=== PATIENT | female | born 1980 | race Caucasian/White ===

== ENCOUNTER → 2019-09-11 | Day surgery (SDC) | payer OTHER ==
[~2019-09-11] MED LIST: ACETAMINOPHEN/CODEINE 300MG - 30MG TAB ONE; ADVAIR 250-501 EACH INH; CRYSELLE1 EACH PO; DEXAMETHASONE SOD PHOS INJ 4 MG/ML VIAL ONE; LIDOCAINE 1% W/EPINEPHRINE 20 ML VIAL ONE; LIDOCAINE HCL 2% LOCAL INJ 5 ML SDV VIAL INJ ONE; MIDAZOLAM HCL 2 MG/2 ML VIAL ONE; ONDANSETRON HCL INJ 2MG/ML 2ML 2 MG/ML VIAL ONE; PROPOFOL IV EMULSION 10 MG/ML 20 ML VIAL ONE; SEVOFLURANE INHAL SOLN 250 ML PEN BTL ONE; SINGULAIR10 MG PO; XYZAL5 MG PO; ZOLOFT50 MG PO
--- OUTSIDE RECORDS SUMMARY | 2019-09-11 09:38 | XMS REPORT ---
Author Author 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 Allergies, Adverse Reactions, Alerts This patient has no known allergies or adverse reactions. Medications This patient has no known medications.
--- OUTSIDE RECORDS SUMMARY | 2019-09-11 09:38 | XMS REPORT | Summary of Care ---
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 Name Role Phone Raghavendra Archer MD PCP Encounter Details Care Team Description Date Type Department Doctor Unassigned, [facility] [address] [place] [id number] 06/04/2019 Orders Only [address] [address] Allergies Comments Active Allergy Reactions Severity Noted Date Sumatriptan Succinate Unknown - See 08/25/2015 comments Lansoprazole Unknown - See 08/25/2015 comments documented as of this encounter (statuses as of 06/07/2019) Medications End Date Status Medication Sig Dispensed Refills Start Date Active norgestrel-ethinyl Take 1 tablet 0 estradiol (CRYSELLE) by mouth 0.3-30 mg-mcg per tablet daily. Active Cetirizine (ZYRTEC) 10 mg Take by 0 capsule mouth. Active albuterol 90 Inhale 2 8.5 g 11 mcg/actuation Puffs every 6 8 inhalerIndications: Mild (six) hours intermittent asthma as needed for without complication Wheezing. Active fluticasone-salmeterol INHALE 1 PUFF 3 Each 0 (ADVAIR DISKUS) 250-50 BY MOUTH 9 mcg/dose inhalation EVERY 12 diskIndications: Mild HOURS intermittent asthma without complication Active montelukast 10 mg Take 1 tablet 90 tablet 0 tabletIndications: Acute by mouth 9 seasonal allergic daily. rhinitis due to pollen documented as of this encounter (statuses as of 06/07/2019) Active Problems Problem Noted Date Mild intermittent asthma without complication 01/09/2018 Acute seasonal allergic rhinitis due to pollen 01/09/2018 documented as of this encounter (statuses as of 06/07/2019) Immunizations Name Administration Dates Next Due Influenza Virus Vaccine 06/28/2018 documented as of this encounter Social History Date Tobacco Use Types Packs/Day Years Used Never Smoker Smokeless Tobacco: Never Used Drinks/Week oz/Week Comments Alcohol Use 0 Standard drinks or equivalent 0.0 social Yes Sex Assigned at Date Recorded Not on file Industry Job Start Date Occupation Not on file Not on file Not on file Travel End Travel History Travel Start No recent travel history available. documented as of this encounter Last Filed Vital Signs Not on filedocumented in this encounter Plan of Treatment Health Maintenance Due Date Last Done Comments DTaP,Tdap,and Td Vaccines 1998 (1 - Tdap) INFLUENZA VACCINE 06/17/2019 06/28/2018, 07/27/2017 (Previously (Retired version) completed) PAP SMEAR 12/01/2019 12/01/2016 (Previously completed) PNEUMOCOCCAL 0-64 YEARS Aged Out No longer eligible based COMBINED SERIES on patient's age to complete this topic documented as of this encounter Procedures Comments Procedure Name Priority Date/Time Associated Diagnosis AUTHORIZATION FOR RELEASE Routine 06/04/2019 OF PHI 12:01 AM CDT documented in this encounter Results Not on filedocumented in this encounter Insurance Type Payer Benefit Subscriber ID Effective Phone Address Plan / Dates Group HMO/PPO/POS LEONARD[employer] PATTERSON II [id number] 2018-P resent documented as of this encounter
[2019-09-11 13:00] VITALS: BP 127/83
--- NOTE | 2019-09-11 18:41 | Operative Report ---
DATE OF PROCEDURE: 09/11/2019 SURGEON: Jc Negron MD PREOPERATIVE DIAGNOSIS: Lesion in the right lower lip. POSTOPERATIVE DIAGNOSIS: Lesion in the right lower lip. OPERATIVE PROCEDURE: Excision of right lower lip lesion with appropriate closure, size of defect is about 2 x 1 cm. ANESTHESIA: [facility]. INDICATIONS: This 39 years old female was noted to have a lesion in the lower lip for over 6 months. The lesion comes and goes in size, but never gone away. She has been treated with topical medication with no improvement. The patient has no obvious trauma to the area. The lesion was in the lower lip, paramedian on the right side just outside the red line. It was decided excision of lesion with appropriate closure and other necessary procedure will be beneficial for her. DESCRIPTION OF PROCEDURE: The patient was taken to the operating room, put under general anesthesia, endotracheally LMA airway created. The lip was prepped and draped in a sterile fashion. The area was injected with 1% Xylocaine with 1:100,000 epinephrine for hemostasis. The area was identified preoperatively. Anterior and posterior incisions were marked out on the lower lip making sure that the incision did not past the lip line into the subcutaneous skin. The area was excised. The size of the defect was about 2 x 1 cm. Closure of the area was then undertaken. Hemostasis was achieved using the bipolar cautery. The area was examined. The incision was closed using buried 5-0 Monocryl suture in interrupted fashion. This was done by advancing the lateral tissue by elevating the subcutaneous flap and advanced in the midline. The patient tolerated the above procedure well with minimal blood loss. She was able to be transferred to recovery room in stable condition. The patient was given 20 mg of Decadron intraoperatively. Jc Negron MD DKH/MODL /[id number]
--- NOTE | 2019-09-12 12:30 | Pre Op History & Physical ---
DATE OF SURGERY: September 11, 2019. CHIEF COMPLAINT: Lesion in the lower lip, paramedian on the right side for 6 months. HISTORY OF PRESENT ILLNESS: This 39 years old female was noted to have a lesion in the lower lip just inside red line in January 2019. The patient denies any dysphagia or odynophagia. She has no trauma to the area. The patient has been followed over the past few months with no change of the area. This has been irritating to the patient and also sometimes she bite down on it. REVIEW OF SYSTEMS: System review showed no recent cardiovascular, respiratory, or GI problem. PAST MEDICAL HISTORY: The patient has no significant medical problem. PAST SURGICAL HISTORY: The patient has a previous x2, cholecystectomy. ALLERGIES: SHE IS ALLERGIC TO IMITREX AND PREVACID. MEDICATIONS: She is on Singulair, Xyzal, Advair and Cryselle. SOCIAL HISTORY: Nonsmoker and a social drinker. FAMILY HISTORY: Noncontributory. PHYSICAL EXAMINATION: VITAL SIGNS: Within normal limits. EARS: Showed normal tympanic membranes bilaterally. Nasal exam showed no obvious abnormality. Oropharynx and oral cavity show a 1.5 cm lesion paramedian on the right side of her lower lip submucosal inside the red line. No other abnormality was noted. NECK: Showed no lymph node or thyroid palpable. CHEST: Showed good air entry bilaterally. CARDIOVASCULAR: Showed S1, S2. No murmur noted. ASSESSMENT AND PLAN: Mrs. Joyner has lesion in the lower lip over the past 6 months with no improvement. Suggested treatment is excision of lesion with panendoscopy and other necessary procedure with appropriate closure. The complication of procedure includes, but not limited to bleeding, infection, wound breakdown, poor cosmetic result, facial deformity, dysphagia, oral incompetence, facial nerve injury, persistent recurrence of the lesion. Alternatives will be continued observation, excision of lesion in the office setting. The patient has elected to undergo surgical procedure. MD SNEHAL Vail/DENIA /[id number]
== END | disposition home or self-care (01) ==
LOC: EDBD 08:30 → OR 09:36
PROVIDERS: ATTEND Otolaryngology Otolaryngology/Facial Plastic Surgery
DX: L28.0 Lichen simplex chronicus (principal); J45.909 Unspecified asthma, uncomplicated; K21.9 Gastro-esophageal reflux disease without esophagitis; F32.9 Major depressive disorder, single episode, unspecified; Z88.8 Allergy status to other drugs, medicaments and biological substances
CPT/HCPCS: 40812; 81025; 88305; J1100; J2001; J2250; J2405; J2704